=== PATIENT | male | born 1940 | race Two or more races ===

== ENCOUNTER 2018-04-02 07:55 | Emergency (ER) | payer OTHER ==
[~2018-04-02] VITALS: Ht 170.2 cm; Wt 78.9 kg
[2018-04-02] MEDS ORDERED: METFORMIN HCL850 MG (08:12)
[2018-04-02] MEDS ORDERED: ASA-EC81 MG (08:12)
[2018-04-02] MEDS ORDERED: METOPROLOL TAR100 MG (08:13)
[2018-04-02] MEDS ORDERED: ATORVASTATIN CA20 MG (08:13)
[2018-04-02] MEDS ORDERED: AVAPRO300 MG (08:13)
== END 2018-04-02 12:39 | disposition home or self-care (01) ==
LOC: ER 07:55
DX: R42 Dizziness and giddiness (principal); M54.89 Other dorsalgia